=== PATIENT | male | born 1955 | race Caucasian/White ===

== ENCOUNTER 2016-12-21 16:42 | Inpatient (IN) | payer BC ==
[~2016-12-21] VITALS: Ht 182.9 cm; Wt 115.2 kg
--- NOTE | ~2016-12-21 | HEMODYNAMI ---
PATIENT:CANDE CLEMENTS MEDICAL RECORD: [id number] : 51 LOCATION:D.[id number] ADMISSION DATE: 12/21/16 Generatedon:12/23/201613:57 Patient name: CANDE CLEMENTS Patient #: [id number] SSN: : 1955 Date of study: 12/23/2016 Page: Of Hemodynamic Procedure Report Patient Data Patient Demographics Procedure consent was obtained First Name: CANDE Gender: Male Last Name: TYREE : 1955 Patient #: [id number] Age: 61 year(s) Race: Unknown Additional ID: [id number] Contact details [address]: [address] [place] [address] State: [place] City: [facility] [place], [place] Zip code: [address] Admission Admission Data Admission Date: 12/21/2016 Admission Time: 21:21 Room #: 2204 Procedure Procedure Types Cath Procedure Peripheral Cath Diagnostic Procedure Miscellaneous Procedure Description Procedure Date Procedure Date: 12/23/2016 Procedure Start Time: 13:28 Procedure End Time: 13:43 Procedure Staff Name Function Renato Correa RT Scrub Renato Correa RT Monitor Ruben Chambers MD Performing Physician Diamond Cobb RN Nurse Maite Galindo RT Scrub Procedure Data Cath Procedure Fluoroscopy Diagnostic fluoroscopy Total fluoroscopy Time: time: 0.01 min 0.01 min Diagnostic fluoroscopy Total fluoroscopy dose: dose: 0.02 mGy 0.02 mGy Procedure Medications Medication Administration Route Dosage Fentanyl I.V. 50 mcg Versed I.V. 1 mg Fentanyl I.V. 50 mcg Versed I.V. 1 mg Versed I.V. 1 mg Hemodynamics Rest Heart Rate: 70 (bpm) Snapshots Pre Cath Intra NCS Post Cath Vital Signs Time Heart Resp SPO2 NIBP (mmHg) Rhythm Pain Sedation Rate (ipm) (%) Status Level (bpm) 13:21:06 60 31 155/85(130) NSR 0 (11) 10(A) , No pain 13:25:36 60 30 153/78(136) NSR 0 (11) 10(A) , No pain 13:30:03 61 26 158/90(139) NSR 0 (11) 10(A) , No pain 13:34:31 65 19 94 163/84(125) NSR 0 (11) 9(A) , No pain 13:38:51 65 16 96 145/77(116) NSR 0 (11) 9(A) , No pain 13:43:13 65 16 97 139/76(106) NSR 0 (11) 9(A) , No pain 13:47:34 65 13 95 142/84(115) NSR 0 (11) 10(A) , No pain 13:51:33 No Cuff NSR 0 (11) 10(A) , No pain 13:55:33 No Cuff NSR 0 (11) 10(A) , No pain Medications Time Medication Route Dose Verified Delivered Reason Notes Effectivene ss by by 13:27:00 Versed I.V. 1 mg Diamond Diamond for Jordyn Jordyn sedation RN RN 13:27:12 Versed I.V. 1 mg Diamond Diamond for Jordyn Jordyn sedation RN RN 13:27:15 Fentanyl I.V. 50 Diamond Diamond for mcg Jordyn Jordyn sedation RN RN 13:32:08 Fentanyl I.V. 50 Diamond Diamond for mcg Jordyn Jordyn sedation RN RN 13:32:17 Versed I.V. 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 13:19:31 Patient received from Med/Surg to IR Alert and oriented. Tansferred to table in Supine position. 13:19:32 Correct patient and procedure confirmed by team. 13:19:34 Signed procedure consent form obtained from patient. 13:19:35 ECG and BP/O2 sat monitors applied to patient. 13:19:37 Vital chart was started 13:19:38 Baseline sample Acquired. 13:19:44 Rhythm: sinus rhythm 13:19:47 Full Disclosure recording started 13:19:52 H&P Date Dictated: 12/23/2016 Within 30 days and on chart.. 13:19:53 Pre-procedure instructions explained to patient. 13:19:54 Pre-op teaching completed and patient verbalized understanding. 13:19:56 Family in waiting room. 13:19:57 Patient NPO since Midnight. 13:20:42 Is the patient allergic to Iodine/contrast media? No. 13:20:45 Is patient on blood thinner?No 13:20:46 Patient diabetic? Yes. 13:20:49 If diabetic: On Metformin? No 13:20:50 - 13:20:51 ----Pre-sedation anethsthesia assessment.---- 13:20:55 Previous problem with sedation/anesthesia? No ? 13:20:57 Snore? Yes 13:20:59 Sleep apnea? No 13:21:01 Deviated septum? No 13:21:04 Opens mouth fully? Yes 13:21:05 Sticks out tongue? Yes 13:21:07 Airway obstruction? No ? 13:21:10 Dentures? No ? 13:21:18 Patient pain scale 0/10 no. 13:21:26 IV patent on arrival in right forearm with 0.[facility]% [facility] at [facility]. 13:21:29 Sharps counted by scrub and verified by R.N. 13:21:30 Alarms reviewed by R. N. 13:21:38 Left knee area was prepped with chlora-prep and draped in sterile fashion 13:27:00 Versed 1 mg I.V. was administered by Diamond Cobb RN; for sedation; 13:27:08 --------ALL STOP TIME OUT------ 13:27:08 Physician arrived 13:27:09 Final Timeout: patient, procedure, and site verified with staff and physician. All members of the team are in agreement. 13:27:12 Versed 1 mg I.V. was administered by Diamond Cobb RN; for sedation; 13:27:13 Left knee site verified by team. 13:27:15 Fentanyl 50 mcg I.V. was administered by Diamond Cobb RN; for sedation; 13:27:21 Physical assessment completed. ASA score P 2 - A patient with mild systemic disease as per Ruben Chambers MD. 13:27:25 Sedation plan: IV Moderate Sedation Versed, Fentanyl 13:28:44 Procedure started. 13:28:58 Local anesthetic to lt knee with Lidocaine 1% by Ruben Chambers MD.INITIAL ACCESS ONLY 13:32:08 Fentanyl 50 mcg I.V. was administered by Diamond Cobb RN; for sedation; 13:32:17 Versed 1 mg I.V. was administered by Diamond Cobb RN; for sedation; 13:37:05 Procedure ended.(Physican Out) 13:41:38 Fluoroscopy time 00.01 minutes. 13:42:01 Fluoroscopy dose: 0.02 mGy 13:42:01 Flurop Dose total: 0.02 13:42:05 Sharps counted by scrub and verified by R.N. 13:42:11 Post procedure instruction explained to patient.Patient verbalizes understanding. 13:43:10 Procedure and supply charges have been captured, reviewed, submitted an d are correct. 13:43:11 See physician's report for complete and final results. 13:43:20 Report given to Med/Surg. 13:43:34 Patient transfered to Med/Surg with Bed. 13:43:38 Full Disclosure recording stopped 13:43:38 Procedure ended. 13:43:58 End room use (Document Last) Signature Audit [place] Stage Time Signature Unsigned Intra-Procedure 12/23/2016 Maite Mateo 1:57:51 PM RT(R) Signatures Monitor : Renato Signature : Madeline RT Date : Time : [place] [id number]
[~2016-12-21 16:42] MED LIST: BACTRIM DS TABL1 TAB PO; CARDURA4 MG PO; CELEXA20 MG PO; CLEOCIN HCL150 MG PO; DOXYCYCLINE HY100 M2 PO; HYDROCODONE-APA1 TAB PO; MUPIROCIN OIN; NEURONTIN 300300 MG PO; NOVOLIN R100 U/ML SQ; NOVOLOG INJ FLE; SANTYL30 GM TP; TYLENOL W/CODEI1 TAB PO; XARELTO20 MG PO; ZESTRIL20 MG PO; ZOCOR40 MG PO
[2016-12-21 20:54] LABS: BASOPHILS 0.2 % (0.0-2.0); EOSINOPHILS 0 % (0-7); HEMATOCRIT 43.5 % (42.0-54.0); HEMOGLOBIN 15.2 g/dL (13.5-17.5); IMMATURE GRANULOCYTES 0.6 % (0-5); LYMPHOCYTES 9.7 % (15-50); MCH 30.6 pg (26.0-34.0); MCHC 34.9 g/dL (31.0-37.0); MCV 87.5 fL (80.0-100.0); MEAN PLATELET VOLUME 10.9 fL (7.4-10.4); MONOCYTES 13.9 % (2-11); NEUTROPHILS 75.6 % (40-80); RBC 4.97 10x6/uL (4.20-6.10); RDW 13.8 % (11.5-14.5); WBC 18.2 10x3/uL (4.8-10.8)
[2016-12-21 21:09] LABS: ALBUMIN 3.7 g/dL (3.4-5.0); ALKALINE PHOSPHATASE 92 U/L (46-116); ALT (SGPT) 38 U/L (10-68); C-REACTIVE PROTEIN 14.7 mg/dL (0.0-0.9); CALC OSMOLALITY 276 mosm/kg (275-300); CARBON DIOXIDE 27.8 mmol/L (21.0-32.0); CHLORIDE - SERUM 95 mmol/L (98-107); CREATININE - SERUM 0.9 mg/dL (0.6-1.3); GLUCOSE 311 mg/dL (74-106); POTASSIUM - SERUM 4.2 mmol/L (3.5-5.1); PROTEIN - SERUM 6.9 g/dL (6.4-8.2); SODIUM 133 mmol/L (136-145); UREA NITROGEN 11 mg/dL (7-18); eGFR NON AFRICAN AMERICAN > 90 mL/min (90-120)
[2016-12-21 21:25] LABS: PLATELET COUNT 114 10x3/uL (130-400)
[2016-12-21 21:58] LABS: ERYTHROCYTE SEDIMENTATION RATE 16 mm/hr (0-20)
--- NOTE | 2016-12-21 22:00 | NUR ---
RECEIVED PATIENT TO ROOM ALERT AND ORIENTED. C/O PAIN TO LEFT KNEE 03/15. INSTRUCTED USE OF CALL LIGHT. NO NEEDS VOICED AT THIS TIME. BED LOW. CALL LIGHT IN REACH
[2016-12-21] MEDS ORDERED: LEVEMIR100 U/M1 SQ (22:37)
[2016-12-21 23:58] VITALS: BP 161/69; BMI 34.5
[2016-12-22] VITALS: BP 143/66
[2016-12-22 08:19] VITALS: BP 174/56
--- NOTE | 2016-12-22 10:21 | NUR ---
PATIENT HAD 22G IV IN RIGHT HAND. PATIENT HAS VANCOMYCIN ORDERED. DO NOT WANT TO GIVE VANCOMYCIN THROUGH A HAND IV. D/C IV WITH CATH INTACT. STARTED IV TO RIGHT FOREARM, 20G X'S 1 ATTEMPT. LEOPOLDO DUNN FOR CALLED AND SAID " SAID TO HOLD THE VANCOMYCIN UNTIL AFTER THE ASPIRATION."
[2016-12-22 12:16] VITALS: BP 137/71
[2016-12-22 13:11] LABS: COLOR DK YELLOW (YELLOW)
[2016-12-22 13:12] LABS: APPEARANCE HAZY (CLEAR); BILIRUBIN NEGATIVE (NEGATIVE); GLUCOSE 1000 mg/dL (NEGATIVE); KETONE NEGATIVE (NEGATIVE); LEUKOCYTE ESTERASE TRACE (NEGATIVE); NITRITE NEGATIVE (NEGATIVE); PROTEIN NEGATIVE (NEGATIVE)
[2016-12-22 13:13] LABS: BACTERIA FEW /hpf (NONE SEEN); RED CELLS - URINE 0-5 /hpf (0-5); WHITE CELLS - URINE 0-5 /hpf (0-5)
[2016-12-22 13:14] LABS: MUCUS <1+ /lpf (NONE SEEN); YEAST >1+ WITH HYPHAE /hpf (NONE SEEN)
[2016-12-22 13:16] VITALS: Ht 182.9 cm; Wt 115.2 kg
--- NOTE | 2016-12-22 14:06 | NUR ---
Patient Name: CANDE CLEMENTS Admission Status: ER Accout number: [id number] Admission Date: 12-21-2016 : 1955 Admission Diagnosis: Attending: SUSANNA Current LOS: 1 Anticipated DC Date: 12-25-2016 Planned Disposition: Home Primary Insurance: [employer] [facility] EXCHANGE Discharge Planning Comments: CM MET WITH PATIENT REGARDING D/C NEEDS AND PLANS. PATIENT STATED HE LIVES WITH HIS (BEVERLY) AND SHE WILL DRIVE HIM HOME WHEN DISCHARGED. PATIENT STATED THERE ARE 2 STEPS W/O RAILS TO ENTER HOME AND NO STAIRS INSIDE. PATIENT STATED HE IS INDEPENDENT WITH HIS CARE AND HAS A WALKER, WHEELCHAIR, SHOWER CHAIR, BS COMMODE, CANE, AND GLUCOMETER (CKS. 2X DAY) AT HOME. PATIENTS PCP IS DR. ALBERTS AND PHARMACY IS [facility]. PATIENT HAS NOT HAD HOME HEALTH AND DOES NOT WANT IT WHEN DISCHARGED. CM WILL CONTINUE TO FOLLOW PATIENT WITH D/C NEEDS AND PLANS. PCP DR. ENGLISH SALDAÑA [facility] (PHARMACY) [phone] BEVERLY () [phone] Psychological Examiner: Melisa Dang Is the patient Alert and Oriented? Yes 0 * How many steps to enter\exit or inside your home? 2 W/O RAIL 0 * PCP DR. ALBERTS 0 * Pharmacy [facility] 0 * Preadmission Environment Home with Family 0 * ADLs Independent 0 * Equipment Bedside Commode Cane Glucometer Walker Wheelchair 0 * List name and contact numbers for known caregivers / representatives who currently or will assist patient after discharge: BEVERLY (SPOUSE) [phone] 0 * Community resources currently utilized None 0 * Additional services required to return to the preadmission environment? Yes 0 * Can the patient safely return to the preadmission environment? Yes 0 * Has this patient been hospitalized within the prior 30 days at any hospital? No 0 Grand Total: 0
[2016-12-22 16:44] VITALS: BP 131/64
[2016-12-22] MEDS ORDERED: OMEPRAZOLE20 M1 PO (19:51)
[2016-12-22] MEDS ORDERED: NEURONTIN 300300 MG PO (19:52)
[2016-12-22] MEDS ORDERED: ASPIRIN325 MG PO (19:52)
[2016-12-22 20:00] VITALS: BP 150/71
--- NOTE | 2016-12-22 21:00 | NUR ---
PATIENT RESTING IN BED. PRESENT. NO SIGNS OF DISTRESS NOTED. EDUCATED ON NPO AFTER MIDNIGHT AND PROCEDURE CONSENTS SIGNED. SCHEDULED MEDS GIVEN. SHIFT ASSESSMENT COMPLETED. NO NEEDS VOICED AT THIS TIME. BED LOW. CALL LIGHT IN REACH
[2016-12-23] VITALS (8 sets, daily range): BP systolic 96–154; BP diastolic 45–72
--- NOTE | 2016-12-23 02:00 | NUR ---
PT IN BED WITH NO DISTRESS. RESPIRATIONS EVEN AND UNLABORED. SIDE RAILS X 2. BED LOW. CALL LIGHT IN REACH.
[2016-12-23 05:38] LABS: BASOPHILS 0.1 % (0.0-2.0); EOSINOPHILS 0.8 % (0-7); HEMATOCRIT 39.9 % (42.0-54.0); HEMOGLOBIN 13.4 g/dL (13.5-17.5); IMMATURE GRANULOCYTES 0.4 % (0-5); LYMPHOCYTES 16.6 % (15-50); MCH 30.1 pg (26.0-34.0); MCHC 33.6 g/dL (31.0-37.0); MEAN PLATELET VOLUME 11.7 fL (7.4-10.4); MONOCYTES 15.6 % (2-11); NEUTROPHILS 66.5 % (40-80); PLATELET COUNT 125 10x3/uL (130-400); RBC 4.45 10x6/uL (4.20-6.10); RDW 13.9 % (11.5-14.5); WBC 13.8 10x3/uL (4.8-10.8)
[2016-12-23 05:48] LABS: MCV 89.7 fL (80.0-100.0)
[2016-12-23 05:50] LABS: APTT 31.7 SECONDS (22.8-39.4); INR 1.32 (0.85-1.17); PROTIME 16.3 SECONDS (11.6-15.0)
[2016-12-23 06:02] LABS: CARBON DIOXIDE 30.1 mmol/L (21.0-32.0); CREATININE - SERUM 0.7 mg/dL (0.6-1.3); GLUCOSE 177 mg/dL (74-106); UREA NITROGEN 12 mg/dL (7-18); eGFR NON AFRICAN AMERICAN > 90 mL/min (90-120)
[2016-12-23 06:24] LABS: CALC OSMOLALITY 269 mosm/kg (275-300); CHLORIDE - SERUM 96 mmol/L (98-107); POTASSIUM - SERUM 3.8 mmol/L (3.5-5.1); SODIUM 133 mmol/L (136-145)
--- NOTE | 2016-12-23 07:47 | HP ---
PATIENT: CANDE CLEMENTS MEDICAL RECORD: [id number] ACCOUNT: [id number] LOCATION:D.[id number] : [birth year] ADMISSION DATE: 12/21/16 HISTORY AND PHYSICAL EXAMINATION REASON FOR ADMISSION: Left knee pain and fever. HISTORY OF PRESENT ILLNESS: The patient is a 61-year-old male with poorly-controlled metabolic syndrome. He has had 3 prior total knee replacements on the left. He said he has had increasing pain in the last 3-4 days and the knee felt warm to him. He had some subjective fever, did not check his blood sugars, also elevated somewhat. For this reason, he came to Emergency Room last evening. Dr. Fischer examined the patient and felt he had symptoms compatible with a septic joint. He is now admitted. He does not have any recent abrasions or cuts on his foot or lower leg. On admission, his white count was 18,000 with left shift, and random glucose was 311. PAST MEDICAL HISTORY: Last hospitalized 01/31/2016 for Staph and Strep cellulitis of his left hip and right inner thigh, requiring I&D. Diabetes mellitus, poorly controlled; exogenous obesity, history of paroxysmal atrial fibrillation, CAD with multiple interventions with PTCA, diabetic retinopathy, sick sinus syndrome with pacemaker placement, cardiomyopathy with last cardiac cath on 03/31/2014 at [facility] showing normal coronaries and EF of 35% and LVH. History of hypogonadism, lumbago, sciatica. History of adult sleep apnea. PAST SURGICAL HISTORY: He had a pacemaker placement, 11/01/2000. Appendectomy. He has had a left total knee replacement times 3, pain pump device placement. Pacemaker change out, 10/05/2007, with a [facility] by Dr. Perea. Ablation of atrial fib focus, 11/01/2000. 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 He has had I&D of right and left thigh abscess, 2016. FAMILY HISTORY: Positive for hypertension in both parents. DRUG ALLERGIES: None mentioned. SOCIAL HISTORY: Nonsmoker, nondrinker. He has been . He has a significant other currently. CURRENT MEDICATIONS: Levemir 47 units subQ b.i.d., Xarelto 20 mg p.o. daily, Cardura 4 mg p.o. daily, lisinopril 20 mg p.o. daily, Zocor 40 mg p.o. at bedtime, Celexa 20 mg p.o. q.a.m., Neurontin 300 mg p.o. at bedtime. REVIEW OF SYSTEMS: GENERAL: He has had subjective fever and fair appetite. HEENT: No recent visual change of new onset, sinus congestion, sore throat or hearing difficulty. RESPIRATORY: No SOB or cough. CARDIAC: No exertional rest chest pain, claudication or edema. GASTROINTESTINAL: No nausea, vomiting, change in stools or blood per rectum. GENITOURINARY: Has nocturia once nightly. No dysuria. MUSCULOSKELETAL: Has chronic lumbago worse in the right hip versus left. He is having increasing pain in his left knee, especially with ambulation in the last several days. He has had warmth in the left knee as well as some heat and HISTORY AND PHYSICAL [id number] CANDE CLEMENTS erythema. INTEGUMENT: Erythema of the left knee, otherwise unremarkable. PSYCHIATRIC: Denies depress mood. PHYSICAL EXAMINATION: GENERAL: Alert 61-year-old male at this time in no acute distress. VITAL SIGNS: Temperature is 98.2 degrees Fahrenheit with a high of 99.1, heart rate 65 and regular, respirations are 28, blood pressure 143/66, with a sat of 94% on room air. HEENT: Normocephalic. Eyes are clear. Oropharynx unremarkable. NECK: No bruits or masses. CHEST: Clear. HEART: Regular rate without ectopy or murmur. ABDOMEN: Obese, soft, nontender. GENITOURINARY: Deferred. EXTREMITIES: He has warmth and swelling on the left patella with a healed surgical scar noted over the left anterior knee and tibia. It is warm to the touch, difficulty flexing causes pain. He is missing the PIPs of his left first, second and third fingers of his left hand. NEUROLOGIC: He is oriented to person, place and time. Cranial nerves intact. Gait was not tested. Pain in his left knee. Decreased sensation to touch in the bottoms of both feet. LABORATORY WORK: Shows a white count of 18.2 thousand with 75% lymphocytes, platelet count was low at 114. H&H is 15.2 and 43.5 respectively. Sodium is 133, potassium is 4.5, glucose is 311, BUN and creatinine 11 and 0.9 respectively. Lactic acid was 3.2 on admission, now 1.2. Total bilirubin is 1.6. C-reactive protein is high at 14.7. X-ray of the knee shows postoperative changes as described with knee arthroplasty, vascular calcifications identified, otherwise unremarkable. 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 PLAN: The patient has been cultured and placed on IV vancomycin. Orthopedic consult has been obtained with Dr. Quigley. Sliding scale insulin. Further workup pending clinical course. TRANSINT:[id number] Voice Confirmation ID: [id number] DOCUMENT ID: [id number] SINCERE ALBERTS MD at 0747 CC: [id number] DICTATION DATE: 12/22/16 0748 CONCRETE TRUCK DRIVER: 12/22/16 0905 ADM IN [facility] [address] [id number]
--- NOTE | 2016-12-23 09:00 | NUR ---
PATIENT IS AWAKE AND ALERT, HE IS ABLE TO MAKE NEEDS KNOWN. HE HAS NOT C/O PAIN. HE IS READY TO HAVE HIS PROCEDURE AND GET IT OVER WITH.
--- NOTE | 2016-12-23 12:00 | NUR ---
WENT OVER CONSENTS AND PREPROCEDURE FORM WITH PATIENT. PATIENT VERBALIZES UNDERSTANDING.
--- NOTE | 2016-12-23 13:00 | NUR ---
PATIENT WENT TO PROCEDURE VIA STRETCHER.
--- NOTE | 2016-12-23 14:00 | NUR ---
PATIENT BACK FROM PROCEDURE, IV FLUIDS AND ANTIBIOTICS RESTARTED. PATIENT IS RESTING, VS BEING CHECKED. NO, C/O.
--- NOTE | 2016-12-23 16:30 | NUR ---
FSBS 241, PATIENT RECEIVED 8 UNITS HUMALOG.
--- NOTE | 2016-12-23 18:00 | NUR ---
PATIENT SITTING IN HIS ROOM WITH HIS SPOUSE DENIES NEEDS.
--- NOTE | 2016-12-23 19:00 | NUR ---
PATIENT IN BED WATCHING TV. HOB 30 DEGREES. AAOX4. RR EVEN AND UNLABORED. 0 S/S OF DISTRESS. STATES PAIN IS A 4/10 BUT DOES NOT WANT PAIN MEDICATION. IV TO LEFT FA S/L WITH NO REDNESS OR SWELLING. BANDAID TO LEFT KNEE. SRX2. BED LOW. CALL LIGHT WITHIN REACH.
--- NOTE | 2016-12-23 21:00 | NUR ---
10 UNITS OF HUMALOG GIVEN FOR A BS OF 252 AND LEVEMIR GIVEN PER ORDER. DENIES NEEDS AT THIS TIME.
--- NOTE | 2016-12-23 23:32 | NUR ---
DILAUDID GIVEN FOR A PAIN OF A 9/10. WILL REASSESS.
[2016-12-24] VITALS: BP 138/57
--- NOTE | 2016-12-24 02:00 | NUR ---
PATIENT IN BED WITH EYES CLOSED. STATES PAIN IS DOWN TO A 3/10.
[2016-12-24 03:00] VITALS: BP 137/74
[2016-12-24 07:46] VITALS: BP 143/68
--- NOTE | 2016-12-24 08:25 | NUR ---
SCHEDULED MEDICATIONS ADMINSTERED AT THIS TIME WELL PRN DILAUDID PER ORDER FOR PAIN. ASSESSMENT PERFORMED PER FLOWSHEET. PT AMBULATES INDEPENDENTLY WITH WALKER. DENIES FURTHER NEEDS AT PRESENT TIME. CALL LIGHT IN REACH, WILL CONTINUE WITH PLAN OF CARE.
--- NOTE | 2016-12-24 11:47 | NUR ---
HUMALOG ADMINISTERED PER SLIDING SCALE AT THIS TIME. PT DENIES NEED FOR PAIN MEDICATION AT THIS TIME. CALL LIGHT IN REACH, WILL CONTINUE WITH PLAN OF CARE.
[2016-12-24 12:12] VITALS: BP 138/74
[2016-12-24 16:29] VITALS: BP 149/72
[2016-12-24 20:00] VITALS: BP 162/73
--- NOTE | 2016-12-24 20:15 | NUR ---
PATIENT RESTING IN BED. NO SIGNS OF DISTRESS NOTED. ALERT AND ORIENTED. AT BEDSIDE. SHIFT ASSESSMENT COMPLETED. SET UP FOR SHOWER AND LINENS CHANGED. DENIES ANY OTHER NEEDS AT THIS TIME. BED LOW. CALL LIGHT IN REACH
--- NOTE | 2016-12-24 21:58 | NUR ---
RESTING WITH EYES CLOSED, SNORING RESP, BLE ELEVATED, FALL PRECATIONS IN PLACE, CL IN REACH
[2016-12-25] VITALS: BP 132/67
[2016-12-25 04:00] VITALS: BP 154/74
[2016-12-25 07:52] VITALS: BP 138/66
--- NOTE | 2016-12-25 07:55 | NUR ---
PATIENT IS AWAKE, ALERT AND ORIENTED X'S 4. PATIENT DENIES NEEDS. BED IN LOWEST POSITION, CALL LIGHT IN REACH. BED RAILS UP X'S 2.
--- NOTE | 2016-12-25 08:20 | NUR ---
PATIENT EATING BREAKFAST. IV TO LEFT FOREARM BAD, WILL D/C AND RESTART IV WHEN PATIENT FINISHES BREAKFAST.
--- NOTE | 2016-12-25 09:37 | NUR ---
IV STARTED TO RIGHT FOREARM X'S 1 ATTEMPT.
[2016-12-25 12:08] VITALS: BP 152/75
--- NOTE | 2016-12-25 12:20 | NUR ---
Nutrition Follow Up: Chart reviewed. Pt is eating 100% meal avg on a diabetic diet. +BM 12/24/16. Wt stable. Labs reviewed - Glucose continues elevated. Meds noted including Levemir, Humalog. Rec continue current diet. RD will continue to monitor pt progress.
[2016-12-25 14:54] VITALS: BP 161/68
--- NOTE | 2016-12-25 19:58 | NUR ---
PATIENT RESTING IN BED AND DENIES NEEDS AT THIS TIME. BED IN LOWEST POSITION AND CALL LIGHT WTIHIN REACH. ENCOURAGED THE PATIENT TO CALL IF HE HAS FURTHER NEEDS.
[2016-12-25 20:00] VITALS: BP 127/52
[2016-12-26] VITALS: BP 143/61
[2016-12-26 04:00] VITALS: BP 126/69
--- NOTE | 2016-12-26 07:00 | NUR ---
PT REC'D FROM RIYA SCHUSTER. RESTING IN BED WITH EYES CLOSED. NO SIGNS OF DISTRESS. EASILY AROUSED. AAOX4. REGULAR HEART RATE AND RHYTHM. LUNG SOUNDS CLEAR AND EQUAL BILAT. BOWEL SOUNDS ACTIVE X4 QUADRANTS. L KNEE WARM AND SWOLLEN. +1 PITTING EDEMA FROM ANKLE TO KNEE. RATING CURRENT PAIN 6/10. BED LOW, CALL LIGHT IN REACH, DENIES NEEDS. CPOC.
[2016-12-26 08:17] VITALS: BP 128/66
--- NOTE | 2016-12-26 10:15 | NUR ---
MORNING MEDS PASSED AT THIS TIME. PRN DILAUDID ADMINISTERED PER PT C/O 04/15 L KNEE PAIN. WILL REASSESS. PIV TO R WRIST FREE OF REDDNESS AND SWELLING. LONG ACTING INSULIN ADMINISTERED TO LUQ. BED LOW, CALL LIGHT IN REACH, DENIES NEEDS. CPOC.
[2016-12-26 11:45] VITALS: BP 148/71
--- NOTE | 2016-12-26 11:52 | NUR ---
CURRENT FSBS 220. 12 UNITS OF INSULIN ADMINISTERED PER SS. GIVEN IN L ARM. BED LOW, CALL LIGHT IN REACH, DENIES NEEDS. CPOC.
[2016-12-26 15:35] VITALS: BP 155/75
--- NOTE | 2016-12-26 18:02 | NUR ---
PATIENT RESTING QUIETLY IN THE BED. IV SITE PATENT WITHOUT ANY S/S OF INFECTION IN PATIENT'S RIGHT HAND. PATIENT DENIES NEEDS AT PRESENT TIME. SCD'S IN PLACE TO BILATERAL LOWER EXTREMITIES. CALL LIGHT IN PATIENT'S REACH. WILL MONITOR.
[2016-12-26 20:00] VITALS: BP 157/56
--- NOTE | 2016-12-26 20:00 | NUR ---
PATIENT RESTING IN BED WITH FAMILY AT BEDSIDE. PATIENT SHOWS NO VISIBLE SIGNS OF DISTRESS. BED IN LOWEST POSITION AND CALL LIGHT WITHIN REACH. ENCOURAGED PATIENT TO CALL IF HE HAS NEEDS.
[2016-12-27] VITALS: BP 148/71
[2016-12-27 04:00] VITALS: BP 149/59
[2016-12-27 08:55] VITALS: BP 159/71
[2016-12-27 12:48] VITALS: BP 144/69
[2016-12-27 17:35] VITALS: BP 142/70
--- NOTE | 2016-12-27 21:33 | NUR ---
PATIENT RESTING IN BED WITH C/O 10/10 PAIN. ADMIN DILAUDID PER ORDERS. BS 200, ADMINISTERED INSULIN PER ORDERS. PATIENT DENIES OTHER NEEDS AT THIS TIME. BED IN LOWEST POSITION AND CALL LIGHT WITHIN REACH. ENCOURAGED PATIENT TO CALL IF HE HAS FURTHER NEEDS.
[2016-12-28] VITALS: BP 140/70
[2016-12-28 04:00] VITALS: BP 127/64
[2016-12-28 07:49] VITALS: BP 143/70
--- NOTE | 2016-12-28 08:40 | NUR ---
PT SEEN AND ASSESSED. NO COMP;AINTS AT PRESENT. LEFT KNEE SWOLLEN, WARM BUT NOT PINK OR RED. STATES IT FEELS BETTER. AWAITING CONSULT TO INF CONTROL DOC IN [place]. SPOUSE PRESENT IN ROOM. CALL LIGHT IN REACH.
[2016-12-28 11:25] VITALS: BP 135/70
[2016-12-28 16:01] VITALS: BP 141/68
[2016-12-28 20:00] VITALS: BP 116/55
--- NOTE | 2016-12-28 20:17 | NUR ---
PATIENT RESTING IN BED WITH WITH AT BEDSIDE. PATIENT STATED THAT HE IS STILL HOPING THE DOCTOR WILL BE IN TO SEE HIM TONIGHT. BED IN LOWEST POSITION AND CALL LIGHT WITHIN REACH. ENCOURAGED THAT PATIENT TO CALL IF HE HAS FURTHER NEEDS.
--- NOTE | 2016-12-28 21:45 | NUR ---
PATIENT RESTING IN BED WITH 9/10 PAIN. ADMINISTERED MEDS PER ORDERS. BED IN LOWEST POSITION AND CALL LIGHT WITHIN REACH. ENCOURAGED PATIENT TO CALL IF HE HAS FURTHER NEEDS.
[2016-12-29] VITALS: BP 144/68
[2016-12-29 04:00] VITALS: BP 157/66
--- NOTE | 2016-12-29 07:38 | NUR ---
AWAKE AND ALERT AT THIS TIME. RESPIRATIONS EVEN AND NON LABORED. IV TO LEFT FOREARM PATENT WITH NO S/S OF DISTRESS PRESENT. DENIES NEEDS AT THIS TIME. CALL LIGHT IN REACH. WILL CONTINUE WITH PLAN OF CARE.
[2016-12-29 08:12] LABS: BASOPHILS 0.3 % (0-2); EOSINOPHILS 0.7 % (0-7); HEMATOCRIT 38.8 % (42.0-54.0); IMMATURE GRANULOCYTES 0.4 % (0-5); LYMPHOCYTES 15.7 % (15-50); MCH 29.7 pg (26.0-34.0); MCHC 33.5 g/dL (31.0-37.0); MCV 88.8 fL (80.0-100.0); MEAN PLATELET VOLUME 9.6 fL (7.4-10.4); MONOCYTES 14.1 % (2-11); NEUTROPHILS 68.8 % (40-80); PLATELET COUNT 242 10x3/uL (130-400); RBC 4.37 10x6/uL (4.20-6.10); RDW 13.6 % (11.5-14.5); WBC 10.6 10x3/uL (4.8-10.8)
--- NOTE | 2016-12-29 08:15 | NUR ---
PT RESTING IN BED WITH EYES OPEN CALL LIGHT IN REACH WILL MONITER
[2016-12-29 08:36] LABS: CALC OSMOLALITY 272 mosm/kg (275-300); CALCIUM 9.4 mg/dL (8.5-10.1); CARBON DIOXIDE 28.3 mmol/L (21.0-32.0); CHLORIDE - SERUM 99 mmol/L (98-107); CREATININE - SERUM 0.7 mg/dL (0.6-1.3); GLUCOSE 93 mg/dL (74-106); POTASSIUM - SERUM 3.9 mmol/L (3.5-5.1); SODIUM 137 mmol/L (136-145); UREA NITROGEN 10 mg/dL (7-18); VANCOMYCIN - TROUGH 16.3 ug/mL (10.0-20.0); eGFR NON AFRICAN AMERICAN > 90 mL/min (90-120)
[2016-12-29 09:03] VITALS: BP 138/69
--- NOTE | 2016-12-29 12:15 | NUR ---
PT RESTING IN BED EATING LUNCH TOLERATING WELL WILL MONITER
[2016-12-29 12:16] VITALS: BP 144/77
[2016-12-29 15:53] VITALS: BP 164/64
[2016-12-29] MEDS ORDERED: VIBRAMYCIN 100100 MG PO (17:35)
[2016-12-29] MEDS ORDERED: HUMALOG 30100 UNITS/ SC (17:36)
[2016-12-29] MEDS ORDERED: LEVEMIR100 U/M1 SC (17:36)
[2016-12-29] MEDS ORDERED: HYDROCODONE-APA1 TAB PO (17:39)
--- NOTE | 2016-12-29 17:44 | NUR ---
PT SITTING ON BED EATING SUPPER TOLERATING WELL WILL MONITER
--- NOTE | 2016-12-29 18:40 | NUR ---
PT DISCHARGED TO HOME VIA WHEELCHAIR PT DISCHARGE SUMMARY AND MEDS REVIEWED NO QUESTIONS TOLERATED WELL
--- NOTE | 2016-12-30 17:23 | DS ---
PATIENT:CANDE CLEMENTS :51 MEDICAL RECORD: [id number] DISCHARGE SUMMARY ADMISSION DATE: 12/21/16 DISCHARGE DATE: 12/29/16 DISCHARGE DIAGNOSES: Left knee infection with Staphylococcus lugdunensis, diabetes mellitus, uncontrolled, and osteoarthritis. CONSULTANTS: Dr. Crow Quigley, orthopedics. HOSPITAL COURSE: A 61-year-old male with metabolic syndrome presented with increasing pain, warmth in his left knee. White blood count was elevated at 18.2 thousand with left shift. BUN and creatinine were 10 and 0.7 and glucose was 272. He was placed on sliding scale insulin, Lantus was increased to 63 units b.i.d. a.c. He had blood and urine cultures obtained. He underwent interventional radiology aspiration of his knee after his anticoagulant was withheld. He grew the above staph organism. Cultures showed sensitivity to tetracycline, levofloxacin, ciprofloxacin, vancomycin which the patient was on while hospitalized. He was switched to oral doxycycline. His pain has been improving, still warm to touch. His white count is improved to 10,000 from 18,000. Dr. uQigley consulted, but per telephone with Dr. Sarha in [place], [place] and he has accepted the patient and an appointment will be set up at Dr. Quigley's office tomorrow. The patient will be discharged home tonight with improved condition. DISCHARGE MEDICATIONS: Hydrocodone 10/325 one q.4-6 hours for pain, #30, no refills; doxycycline 100 mg p.o. b.i.d. p.c., Levemir 63 units subQ b.i.d. a.c., insulin lispro per sliding scale insulin, Zocor 40 mg p.o. at h.s., Xarelto 20 mg p.o. daily, lisinopril 20 mg p.o. daily, Cardura 4 mg p.o. at h.s., Celexa 20 mg p.o. daily, omeprazole 20 mg p.o. q.a.m., Neurontin 300 mg p.o. t.i.d., aspirin 325 mg p.o. daily. DIET: 2500-calorie ADA, no added salt. ACTIVITY: Limited. FOLLOWUP: Return to clinic, Dr. Quigley in 1 week. TRANSINT:[id number] Voice Confirmation ID: [id number] DOCUMENT ID: [id number] SINCERE ALBERTS MD at 1723 CC: [id number] DICTATION DATE: 12/29/161742 BUSINESS ADMINISTRATION PROFESSOR: 12/30/16 1352 DIS IN 12/29/16 [facility] [address] [id number]
== END 2016-12-29 18:41 | disposition home or self-care (01) | DRG 561 ==
LOC: D.ER 16:42 → D.MS 21:21
PROVIDERS: Emergency Medicine; Specialist; ADMIT Family Medicine
PROC: 0S9D3ZZ Drainage of Left Knee Joint, Percutaneous Approach (ICD-10-PCS; principal; 2016-12-23 13:15)
DX: T84.54XA Infection and inflammatory reaction due to internal left knee prosthesis, initial encounter (principal); E11.40 Type 2 diabetes mellitus with diabetic neuropathy, unspecified; I10 Essential (primary) hypertension; I48.91 Unspecified atrial fibrillation; Z95.0 Presence of cardiac pacemaker; B95.7 Other staphylococcus as the cause of diseases classified elsewhere; E11.9 Type 2 diabetes mellitus without complications; Z79.4 Long term (current) use of insulin; R19.7 Diarrhea, unspecified

== ENCOUNTER → 2017-02-10 19:48 | Outpatient (CLI) | payer BC ==
[2016-12-22 13:16] VITALS: BMI 34.4
[~2017-02-10 19:48] MED LIST changes: +ASPIRIN325 MG PO; +HUMALOG 30100 UNITS/ SC; +LEVEMIR100 U/M1 SC; +LEVEMIR100 U/M1 SQ; +OMEPRAZOLE20 M1 PO; +VIBRAMYCIN 100100 MG PO
[2017-02-10 20:06] LABS: BASOPHILS 0.4 % (0-2); EOSINOPHILS 2.6 % (0-7); HEMATOCRIT 38.2 % (42.0-54.0); HEMOGLOBIN 12.5 g/dL (13.5-17.5); IMMATURE GRANULOCYTES 0.3 % (0-5); LYMPHOCYTES 19.8 % (15-50); MCH 28.9 pg (26.0-34.0); MCHC 32.7 g/dL (31.0-37.0); MCV 88.2 fL (80.0-100.0); MONOCYTES 11.6 % (2-11); NEUTROPHILS 65.3 % (40-80); RBC 4.33 10x6/uL (4.20-6.10); RDW 14.6 % (11.5-14.5); WBC 9.3 10x3/uL (4.8-10.8)
[2017-02-10 20:09] LABS: PLATELET COUNT 166 10x3/uL (130-400)
[2017-02-10 20:18] LABS: ALBUMIN 3.3 g/dL (3.4-5.0); ALKALINE PHOSPHATASE 129 U/L (46-116); ALT (SGPT) 42 U/L (10-68); BILIRUBIN - TOTAL 0.53 mg/dL (0.2-1.3); C-REACTIVE PROTEIN 1.9 mg/dL (0.0-0.9); CALC OSMOLALITY 280 mosm/kg (275-300); CALCIUM 9.7 mg/dL (8.5-10.1); CARBON DIOXIDE 27.9 mmol/L (21.0-32.0); CHLORIDE - SERUM 102 mmol/L (98-107); CREATINE KINASE 95 UL (21-232); CREATININE - SERUM 0.8 mg/dL (0.6-1.3); GLUCOSE 109 mg/dL (74-106); PROTEIN - SERUM 7.3 g/dL (6.4-8.2); SODIUM 140 mmol/L (136-145); UREA NITROGEN 16 mg/dL (7-18); eGFR NON AFRICAN AMERICAN > 90 mL/min (90-120)
[2017-02-10 21:05] LABS: ERYTHROCYTE SEDIMENTATION RATE 47 mm/hr (0-20)
== END | disposition home or self-care (01) ==
LOC: D.LABREF 19:48
PROVIDERS: Family Medicine
DX: Z96.652 Presence of left artificial knee joint (principal)

== ENCOUNTER → 2017-02-15 15:42 | Outpatient (CLI) | payer MEDICAID ==
[2016-12-22 13:16] VITALS: BMI 34.4
[2017-02-15 16:56] LABS: BASOPHILS 0.3 % (0-2); EOSINOPHILS 1.1 % (0-7); HEMATOCRIT 36.9 % (42.0-54.0); HEMOGLOBIN 12.1 g/dL (13.5-17.5); IMMATURE GRANULOCYTES 0.3 % (0-5); LYMPHOCYTES 15.6 % (15-50); MCHC 32.8 g/dL (31.0-37.0); MCV 88.5 fL (80.0-100.0); MEAN PLATELET VOLUME 11.3 fL (7.4-10.4); MONOCYTES 13.1 % (2-11); NEUTROPHILS 69.6 % (40-80); PLATELET COUNT 151 10x3/uL (130-400); RBC 4.17 10x6/uL (4.20-6.10); WBC 10.5 10x3/uL (4.8-10.8)
[2017-02-15 17:47] LABS: ALBUMIN 3.2 g/dL (3.4-5.0); ALKALINE PHOSPHATASE 126 U/L (46-116); ALT (SGPT) 35 U/L (10-68); C-REACTIVE PROTEIN 5.3 mg/dL (0.0-0.9); CALC OSMOLALITY 271 mosm/kg (275-300); CARBON DIOXIDE 27.2 mmol/L (21.0-32.0); CHLORIDE - SERUM 100 mmol/L (98-107); CREATINE KINASE 105 UL (21-232); CREATININE - SERUM 0.7 mg/dL (0.6-1.3); GLUCOSE 139 mg/dL (74-106); POTASSIUM - SERUM 3.7 mmol/L (3.5-5.1); PROTEIN - SERUM 7.2 g/dL (6.4-8.2); SODIUM 135 mmol/L (136-145); UREA NITROGEN 13 mg/dL (7-18); eGFR NON AFRICAN AMERICAN > 90 mL/min (90-120)
[2017-02-15 18:00] LABS: ERYTHROCYTE SEDIMENTATION RATE 44 mm/hr (0-20)
== END | disposition home or self-care (01) ==
LOC: D.LABREF 15:42
PROVIDERS: Family Medicine
DX: Z96.652 Presence of left artificial knee joint (principal)

== ENCOUNTER → 2017-03-17 19:31 | Outpatient (CLI) | payer MEDICAID ==
[2016-12-22 13:16] VITALS: BMI 34.4
[2017-03-17 20:40] LABS: CREATININE - SERUM 0.9 mg/dL (0.6-1.3); VANCOMYCIN - TROUGH 9.5 ug/mL (10.0-20.0)
== END | disposition home or self-care (01) ==
LOC: D.LABREF 19:31
PROVIDERS: Family Medicine
DX: Z51.81 Encounter for therapeutic drug level monitoring (principal); Z79.2 Long term (current) use of antibiotics

== ENCOUNTER → 2017-03-22 15:25 | Outpatient (CLI) | payer MEDICAID ==
[2016-12-22 13:16] VITALS: BMI 34.4
[2017-03-22 16:04] LABS: HEMATOCRIT 32.1 % (42.0-54.0); HEMOGLOBIN 10.4 g/dL (13.5-17.5); LYMPHOCYTES 18.1 % (15-50); MCHC 32.4 g/dL (31.0-37.0); MCV 86.5 fL (80.0-100.0); MEAN PLATELET VOLUME 9.3 fL (7.4-10.4); NEUTROPHILS 68.5 % (40-80); RBC 3.71 10x6/uL (4.20-6.10); RDW 16.4 % (11.5-14.5); WBC 9.7 10x3/uL (4.8-10.8)
[2017-03-22 16:05] LABS: PLATELET COUNT 267 10x3/uL (130-400)
[2017-03-22 16:24] LABS: C-REACTIVE PROTEIN 2.8 mg/dL (0.0-0.9); CREATININE - SERUM 0.7 mg/dL (0.6-1.3); VANCOMYCIN - TROUGH 21.1 ug/mL (10.0-20.0)
[2017-03-22 17:11] LABS: ERYTHROCYTE SEDIMENTATION RATE 40 mm/hr (0-20)
== END | disposition home or self-care (01) ==
LOC: D.LABREF 15:25
PROVIDERS: Family Medicine
DX: T84.54XA Infection and inflammatory reaction due to internal left knee prosthesis, initial encounter (principal)

== ENCOUNTER → 2017-03-29 15:56 | Outpatient (CLI) | payer MEDICAID ==
[2016-12-22 13:16] VITALS: BMI 34.4
[2017-03-29 16:10] LABS: BASOPHILS 0.5 % (0-2); EOSINOPHILS 5.2 % (0-7); HEMATOCRIT 34.2 % (42.0-54.0); HEMOGLOBIN 10.6 g/dL (13.5-17.5); IMMATURE GRANULOCYTES 0.3 % (0-5); LYMPHOCYTES 15.9 % (15-50); MCV 90.5 fL (80.0-100.0); MONOCYTES 11.1 % (2-11); PLATELET COUNT 240 10x3/uL (130-400); RBC 3.78 10x6/uL (4.20-6.10); RDW 17.3 % (11.5-14.5); WBC 7.5 10x3/uL (4.8-10.8)
[2017-03-29 16:37] LABS: C-REACTIVE PROTEIN 0.7 mg/dL (0.0-0.9); CREATININE - SERUM 0.6 mg/dL (0.6-1.3); VANCOMYCIN - TROUGH 15.3 ug/mL (10.0-20.0)
[2017-03-29 18:46] LABS: ERYTHROCYTE SEDIMENTATION RATE 26 mm/hr (0-20)
== END | disposition home or self-care (01) ==
LOC: D.LABREF 15:56
PROVIDERS: Family Medicine
DX: T84.54XA Infection and inflammatory reaction due to internal left knee prosthesis, initial encounter (principal)

== ENCOUNTER 2017-04-01 07:18 | Emergency (ER) | payer BC ==
[2016-12-22 13:16] VITALS: BMI 34.4
== END 2017-04-01 10:03 | disposition home or self-care (01) ==
LOC: D.ER 07:18
DX: S89.92XA Unspecified injury of left lower leg, initial encounter (principal); W19.XXXA Unspecified fall, initial encounter; Y93.89 Activity, other specified; Y92.89 Other specified places as the place of occurrence of the external cause; E11.9 Type 2 diabetes mellitus without complications; I10 Essential (primary) hypertension; Z95.0 Presence of cardiac pacemaker

== ENCOUNTER → 2017-04-05 09:49 | Outpatient (CLI) | payer MEDICAID ==
[2016-12-22 13:16] VITALS: BMI 34.4
[2017-04-05 12:51] LABS: BASOPHILS 0.6 % (0-2); EOSINOPHILS 7.8 % (0-7); HEMATOCRIT 34.4 % (42.0-54.0); HEMOGLOBIN 10.8 g/dL (13.5-17.5); IMMATURE GRANULOCYTES 0.3 % (0-5); LYMPHOCYTES 15.7 % (15-50); MCH 28.3 pg (26.0-34.0); MCHC 31.4 g/dL (31.0-37.0); MCV 90.3 fL (80.0-100.0); MEAN PLATELET VOLUME 10.6 fL (7.4-10.4); MONOCYTES 11.8 % (2-11); NEUTROPHILS 63.8 % (40-80); RBC 3.81 10x6/uL (4.20-6.10); RDW 17.3 % (11.5-14.5)
[2017-04-05 12:53] LABS: PLATELET COUNT 189 10x3/uL (130-400)
[2017-04-05 13:01] LABS: CREATININE - SERUM 0.6 mg/dL (0.6-1.3); VANCOMYCIN - TROUGH 14.3 ug/mL (10.0-20.0)
[2017-04-05 14:42] LABS: ERYTHROCYTE SEDIMENTATION RATE 15 mm/hr (0-20)
== END | disposition home or self-care (01) ==
LOC: D.LABREF 09:49
PROVIDERS: Family Medicine
DX: T84.54XA Infection and inflammatory reaction due to internal left knee prosthesis, initial encounter (principal)

== ENCOUNTER 2017-04-12 20:09 | Inpatient (IN) | payer MEDICAID ==
[~2017-04-12] VITALS: Ht 182.9 cm; Wt 125.9 kg
[2017-04-12 20:44] LABS: BASOPHILS 0.4 % (0-2); EOSINOPHILS 2.4 % (0-7); HEMOGLOBIN 11.3 g/dL (13.5-17.5); IMMATURE GRANULOCYTES 0.2 % (0-5); LYMPHOCYTES 15.5 % (15-50); MCH 28.3 pg (26.0-34.0); MCHC 31.4 g/dL (31.0-37.0); MONOCYTES 13.6 % (2-11); NEUTROPHILS 67.9 % (40-80); PLATELET COUNT 172 10x3/uL (130-400); RDW 17.3 % (11.5-14.5); WBC 8.4 10x3/uL (4.8-10.8)
[2017-04-12 20:59] LABS: ALBUMIN 3.1 g/dL (3.4-5.0); ALKALINE PHOSPHATASE 132 U/L (46-116); ALT (SGPT) 20 U/L (10-68); BILIRUBIN - TOTAL 0.55 mg/dL (0.2-1.3); CALC OSMOLALITY 272 mosm/kg (275-300); CALCIUM 8.8 mg/dL (8.5-10.1); CARBON DIOXIDE 29.2 mmol/L (21.0-32.0); CHLORIDE - SERUM 102 mmol/L (98-107); CREATININE - SERUM 0.7 mg/dL (0.6-1.3); GLUCOSE 104 mg/dL (74-106); POTASSIUM - SERUM 4.1 mmol/L (3.5-5.1); PROTEIN - SERUM 6.2 g/dL (6.4-8.2); SODIUM 137 mmol/L (136-145); UREA NITROGEN 10 mg/dL (7-18); eGFR NON AFRICAN AMERICAN > 90 mL/min (90-120)
[2017-04-13] VITALS (7 sets, daily range): BP systolic 145–157; BP diastolic 62–76; Ht 182.9 cm; Wt 125.9 kg
--- NOTE | 2017-04-13 00:25 | NUR ---
PT ARRIVED IN ROOM. AT BEDSIDE. PICC LINE IN RIGHT UPPER ARM DRESSING CDI. WALKER FROM HOME IN PT ROOM. PT C/O PAIN 6/10 IN LEFT KNEE THAT IS DULL IN THE KNEE AND RADIATES TO ANKLE AND SUNSHINE AND IS SHARP. PT NEEDS ASSIST TO URINATE IN URINAL. LAST OUTPUT 225CC YELLOW. KNEE BRACE AT BEDSIDE MUST BE USED FOR ANY ACTIVITY. PT IS TO KEEP HIS LEG STRAIGHT AND NOT HAVE A BENT KNEE. DRESSING COVERING HIS INCISON ON LEFT KNEE. START OF INCISION OUT OF DRESSING IS APPROXIMATED AND HAS ABRAN. PT HAS PITTING 2+ EDEMA ON BILAT LOWER EXTREM. ALSO HAS EDEMA IN GROIN AREA, PENIS AND SCROTUM. PT DENIES ANY NEEDS AT THIS TIME. NO S/S OF DISTRESS. 2L OF O2 VIA NC. BED LOW AND CALL LIGHT WITHIN REACH WILL CPOCPT ARRIVED IN ROOM. AT BEDSIDE. PICC LINE IN RIGHT UPPER ARM DRESSING CDI. WALKER FROM HOME IN PT ROOM. PT C/O PAIN 6/10 IN LEFT KNEE THAT IS DULL IN THE KNEE AND RADIATES TO ANKLE AND SUNSHINE AND IS SHARP. PT NEEDS ASSIST TO URINATE INPT ARRIVED IN ROOM. AT BEDSIDE. PICC LINE IN RIGHT UPPER ARM DRESSING CDI. WALKER FROM HOME IN PT ROOM. PT C/O PAIN 6/10 IN LEFT KNEE THAT IS DULL IN THE KNEE AND RADIATES TO ANKLE AND SUNSHINE AND ISPT ARRIVED IN ROOM. AT BEDSIDE. PICC LINE IN RIGHT UPPER ARM DRESSING CDI. WALKER FROM HOME IN PT ROOM. PT C/O PAIN 6/10 IN LEFT KNEE THAT IS DULL IN THE KNEE AND RADIATES TO ANKLE AND SUNSHINE AND IS SHARP. PT HAS TYLENOL # 3 AT HOME THAT DOES NOT HELP WITH PAIN. PT WAS ON HYDROCODONE THAT HELPED MORE. PT NEEDS ASSIST TO URINATE IN URINAL. LAST OUTPUT 225CC YELLOW. KNEE BRACE AT BEDSIDE MUST BE USED FOR ANY ACTIVITY. PT IS TO KEEP HIS LEG STRAIGHT AND NOT HAVE A BENT KNEE. DRESSING COVERING HIS INCISON ON LEFT KNEE. START OF INCISION OUT OF DRESSING IS APPROXIMATED AND HAS ABRAN. PT HAS PITTING 2+ EDEMA ON BILAT LOWER EXTREM. ALSO HAS EDEMA IN GROIN AREA, PENIS AND SCROTUM. PT DENIES ANY NEEDS AT THIS TIME. NO S/S OF DISTRESS. 2L OF O2 VIA NC. BED LOW AND CALL LIGHT WITHIN REACH WILL CPOC
[2017-04-13] MEDS ORDERED: VANCOMYCIN 1 GM/1 G1 IV (00:33)
[2017-04-13] MEDS ORDERED: CEFTRIAXONE1 G/VIAL IM (00:35)
--- NOTE | 2017-04-13 03:59 | NUR ---
PT RESTING IN BED. HYDROCODONE GIVEN FOR 7 PAIN WITH A DIET COKE. TELEMETRY NOW ON PT. PT DENIES ANY OTHER NEEDS. NO S/S OF DISTRESS. WILL CONTINUE TO MONITOR
--- NOTE | 2017-04-13 06:30 | NUR ---
PT RESTING IN BED. STATES PAIN IS A 3/10. C/O ACID REFLUX. PT DENIES ANY NEEDS, NO S/S OF DISTRESS. BED LOW CALL LIGHT WITHIN REACH WILL CPOC
[2017-04-13 06:59] LABS: CALC OSMOLALITY 276 mosm/kg (275-300); CALCIUM 8.9 mg/dL (8.5-10.1); CARBON DIOXIDE 31.9 mmol/L (21.0-32.0); CHLORIDE - SERUM 101 mmol/L (98-107); CREATININE - SERUM 0.7 mg/dL (0.6-1.3); GLUCOSE 117 mg/dL (74-106); POTASSIUM - SERUM 4.1 mmol/L (3.5-5.1); SODIUM 138 mmol/L (136-145); UREA NITROGEN 12 mg/dL (7-18); eGFR NON AFRICAN AMERICAN > 90 mL/min (90-120)
--- NOTE | 2017-04-13 07:05 | NUR ---
RECEIVED REPORT. ASSUMED CARE OF PATIENT. CALL LIGHT WITHIN REACH. DENIES NEEDS AT THIS TIME. EDEMA NOTED TO BILATERAL LOWER LEGS, SCROTUM AND PENIS DURING MORNING ASSESSMENT AT THIS TIME. PICC LINE TO RIGHT UPPER ARM. NO DISTRESS.
[2017-04-13 07:14] LABS: BASOPHILS 0.6 % (0-2); EOSINOPHILS 5.3 % (0-7); HEMATOCRIT 35.1 % (42.0-54.0); HEMOGLOBIN 11.1 g/dL (13.5-17.5); IMMATURE GRANULOCYTES 0.1 % (0-5); LYMPHOCYTES 17.8 % (15-50); MCH 28.5 pg (26.0-34.0); MCHC 31.6 g/dL (31.0-37.0); MEAN PLATELET VOLUME 9.8 fL (7.4-10.4); NEUTROPHILS 62.2 % (40-80); PLATELET COUNT 166 10x3/uL (130-400); RDW 17.4 % (11.5-14.5)
--- NOTE | 2017-04-13 08:37 | NUR ---
ATTEMPTED TO PLACE GOLDMAN CATHETER. PATIENT IS EXTREMELY EDEMATOUS TO PENIS AND SCROTUM. UNABLE TO RETRACT FORESKIN. WILL NOTIFY .
--- NOTE | 2017-04-13 09:30 | NUR ---
ARMED SECURITY PROFESSIONAL SPOKE WITH AND HE STATED [place] TODAY AND WE HAVE TO FIND SOMEONE ELSE TO PLACE THE GOLDMAN. WE HAVE NO OTHER UROLOGIST ON STAFF. AERIAL PHOTOGRAPHER NOTIFIED. PURPOSE OF F/C IS ACURATE I&O, PATIENT IS ABLE TO URINATE WITHOUT DIFFICULTY.
--- NOTE | 2017-04-13 11:49 | NUR ---
FSBS 167. 4 UNITS HUMALOG ADMINISTERED AT THIS TIME. NO DISTRESS.
[2017-04-13 13:01] LABS: APPEARANCE CLEAR (CLEAR); BACTERIA FEW /hpf (NONE SEEN); BILIRUBIN NEGATIVE (NEGATIVE); COLOR YELLOW (YELLOW); EPITHELIAL CELLS RARE /hpf (0-5); GLUCOSE NEGATIVE (NEGATIVE); KETONE NEGATIVE (NEGATIVE); LEUKOCYTE ESTERASE NEGATIVE (NEGATIVE); NITRITE NEGATIVE (NEGATIVE); PROTEIN NEGATIVE (NEGATIVE); RED CELLS - URINE 0-5 /hpf (0-5); UROBILINOGEN NORMAL (NORMAL); WHITE CELLS - URINE RARE /hpf (0-5)
--- NOTE | 2017-04-13 14:29 | NUR ---
KERLIX REMOVED FROM LEFT LEG, INCISION CLEANSED, CLIPS PATENT. INCISION APPROXIMATED. AIRSTRIP MEPILEX DRESSING PLACED OVER CLIPS/INCISION. TOELRATED DRESSING CHANGE WELL. NO DISTRESS.
--- NOTE | 2017-04-13 16:30 | NUR ---
VIs the patient Alert and Oriented? Yes 0 * How many steps to enter\exit or inside your home? 2 STEPS 0 * PCP DR ALBERTS 0 * Pharmacy [facility] 0 * Preadmission Environment Home with Family 0 * ADLs Independent 0 * Equipment PICC Line Supplies Rolling Walker Wheelchair 0 * List name and contact numbers for known caregivers / representatives who currently or will assist patient after discharge: BEVERLY CLEMENTS- [phone] * Community resources currently utilized Home Health 0 * Please name any agencies selected above. [facility] - SPOKE WITH BUNNY BEE SINCE 02/10/17. 0 * Additional services required to return to the preadmission environment? Yes 0 * Can the patient safely return to the preadmission environment? Yes 0 * Has this patient been hospitalized within the prior 30 days at any hospital? Yes 0 Grand Total: 0
--- NOTE | 2017-04-13 16:43 | NUR ---
FSBS 182. 4 UNITS HUMALOG ADMINISTERED PER SLIDING SCALE. NO DISTRESS. CONSUMING PM MEAL AT THIS TIME.
--- NOTE | 2017-04-13 17:25 | NUR ---
PATIENT'S COUNTER TOP ASSEMBLER ON BOARD THIS AFTERNOON, ARMANDO MACHUCA. SHE SPOKE WITH THE PATIENT. KNOWS PATIENT AND HIS VERY WELL. THE PATIENT HAS BEEN ON HOME HEALTH SERVICES WITH [employer]. CM SPOKE WITH FERNANDO AT [facility] [facility] BEGAN 02/10/17 FOR HOME IVAB THERAPY. PATIENT HAD HIS 4TH KNEE SURGERY 03/10- 03/14/17 IN [place]. HE HAD HIS PICC LINE CHANGED DURING THAT HOSPITALIZATION. PCP- DR ALBERTS [facility]- DR GUZMAN WILL BE FOLLOWING - DR TRISTAN SALDAÑA BY [facility]- WALKER, WHEELCHAIR, RAISED TOILET SEAT THERE ARE 2 STEPS TO ENTER HIS HOME. ARMANDO MACHUCA ADVISED CM THAT PATIENT WILL BE REFERRED TO CASE MANAGEMENT THRU [facility]. SHE WILL BE FOLLOWING HIS PROGRESS WHILE HOSPITALIZED. CM TO FOLLOW TO ASSIST WITH DISCHARGE PLANNING.
--- NOTE | 2017-04-13 18:22 | NUR ---
HERE AND SUCCESSFULLY PLACED 16 FR GOLDMAN CATHETER VIA STERILE TECHNIQUE. 100 CC CLEAR YELLOW URINE RECEIVED UPON INSERTION. URINE DRAINING VIA GRAVITY.
--- NOTE | 2017-04-13 18:31 | NUR ---
1821 HERE AND SUCCESSFULLY PLACED 16FR GOLDMAN CATHETER. STERILE TECHNIQUE BROKE BY NON STERILE GLOVES USED BY WHILE INSERTING FOLEYCATH. 100 CC CLEAR YELLOW URINE RETURNED TO DRAINAGE BAG VIA GRAVITY. THIS WAS A DIFFICULT GOLDMAN TO PLACE DUE TO THE AMOUNT OF EDEMA IN PENIS. STATLOCK APPLIED TO INNER RIGHT THIGH. THANKED FOR HIS ASSISTANCE IN PLACING THE GOLDMAN.
--- NOTE | 2017-04-13 19:26 | NUR ---
REPORT GIVEN TO ONCOMING NURSE. NO DISTRESS.
--- NOTE | 2017-04-13 19:30 | NUR ---
REPORT RECIEVED. INTRODUCED SELF TO PT AND PLACED NAME ON WHITE BOARD. RR EVEN AND UNALBORED PT DENIES NEEDS AT THIS TIME. BED IN LOWEST POSTION, CALL SANDOVAL IN REACH, WILL CTM.
[2017-04-14 04:00] VITALS: BP 139/67
[2017-04-14 06:23] LABS: BASOPHILS 0.4 % (0-2); EOSINOPHILS 7.6 % (0-7); HEMATOCRIT 36.1 % (42.0-54.0); HEMOGLOBIN 11.3 g/dL (13.5-17.5); IMMATURE GRANULOCYTES 0.3 % (0-5); LYMPHOCYTES 20.8 % (15-50); MCH 28.2 pg (26.0-34.0); MCHC 31.3 g/dL (31.0-37.0); MEAN PLATELET VOLUME 10.1 fL (7.4-10.4); MONOCYTES 12.6 % (2-11); NEUTROPHILS 58.3 % (40-80); PLATELET COUNT 165 10x3/uL (130-400); RBC 4.01 10x6/uL (4.20-6.10); RDW 17.3 % (11.5-14.5); WBC 7.4 10x3/uL (4.8-10.8)
[2017-04-14 06:47] LABS: CALC OSMOLALITY 278 mosm/kg (275-300); CALCIUM 8.6 mg/dL (8.5-10.1); CARBON DIOXIDE 32.5 mmol/L (21.0-32.0); CHLORIDE - SERUM 99 mmol/L (98-107); CREATININE - SERUM 0.7 mg/dL (0.6-1.3); GLUCOSE 146 mg/dL (74-106); POTASSIUM - SERUM 3.9 mmol/L (3.5-5.1); SODIUM 138 mmol/L (136-145); UREA NITROGEN 12 mg/dL (7-18); VANCOMYCIN - RANDOM 11.9 ug/mL (10.0-20.0); eGFR NON AFRICAN AMERICAN > 90 mL/min (90-120)
[2017-04-14 08:00] VITALS: BP 156/63
--- NOTE | 2017-04-14 08:06 | NUR ---
AM ROUNDS - PT IS AWAKE IN BED AT THIS TIME. YELLOW BAND ON. SIDE RAILS UP X2. BED AT LOWEST POSITION. CALL SANDOVAL IN USE/REACH. MONITOR SHOWING PACE AT 65. GOLDMAN DRAINING CLEAR YELLOW. PICC TO RIGHT UPPER ARM, NS AT 30CC/HR. NO NEEDS AT THSI TIME. WILL CONTINUE TO MONITOR
[2017-04-14 12:00] VITALS: BP 122/64
--- NOTE | 2017-04-14 15:30 | NUR ---
PT IS IN BED WATCHING TV. NO NEEDS AT THIS TIME. WILL CONTINUE OT MONITOR
[2017-04-14 19:00] VITALS: BP 130/56
--- NOTE | 2017-04-14 19:37 | NUR ---
ALERT/AWAKE WATCHING TV. ORIENTED X 4. PICC LINE IN RT UA WITH NS INFUSING AT 30ML/HR. NO S/S OF INFILTRATION. TELEMETRY LEADS IN PLACE, SHOWS 62 PACED ON MONITOR. LEFT LEG IN BRACE. DENIES PAIN. HAS CL IN REACH.
--- NOTE | 2017-04-14 21:10 | NUR ---
ADMIN SCHED MEDS AND INSULINS FOR BS 209. GAVE SNACK OF PEPE CRACKERS AND PEANUT BUTTER, REQUESTED A DIET COLA.
[2017-04-15 01:39] VITALS: BP 146/68
[2017-04-15 05:32] VITALS: BP 132/70
[2017-04-15 07:20] LABS: CALC OSMOLALITY 276 mosm/kg (275-300); CALCIUM 8.7 mg/dL (8.5-10.1); CARBON DIOXIDE 36.2 mmol/L (21.0-32.0); CHLORIDE - SERUM 100 mmol/L (98-107); CREATININE - SERUM 0.8 mg/dL (0.6-1.3); GLUCOSE 104 mg/dL (74-106); SODIUM 138 mmol/L (136-145); eGFR NON AFRICAN AMERICAN > 90 mL/min (90-120)
[2017-04-15 07:24] LABS: UREA NITROGEN 16 mg/dL (7-18)
--- NOTE | 2017-04-15 07:35 | NUR ---
REPORT RECIEVED. PT RESTING QUIETLY, RR EVEN AND UNLABORED. INTRODUCED SELF AND PLACED NAME ON WHTIE BOARD. PT DENIES NEEDS AT THIS TIME, ALERT AND ORIENTED X4. WILL CTM.
[2017-04-15 10:11] VITALS: BP 141/71
[2017-04-15 12:17] VITALS: BP 138/61
[2017-04-15 16:00] VITALS: BP 129/61
--- NOTE | 2017-04-15 16:18 | NUR ---
Nutrition Follow Up: Chart reviewed. Pt is eating 100% meal avg on a diabetic diet. +BM 04/15/17. Wt loss since admit noted - r/t fluid. Meds noted including Lasix, Levemir, Humalog. Labs reviewed - glucose elevated. Rec continue current diet. RD following.
--- NOTE | 2017-04-15 18:30 | NUR ---
PT RESTING QUIETLY, RR EVEN AND UNLABORED. WILL GIVE REPORT ON PT CONDITION FOR THE DAY.
[2017-04-15 20:00] VITALS: BP 144/63
--- NOTE | 2017-04-15 21:10 | NUR ---
CHECKED BS AT 196. REQUESTED TO BE GIVEN 50 UNITS OF THE 63 UNITS SCHED. GAVE SNACK OF PEPE CRACKERS/PEANUT BUTTER. NO OTHER NEEDS VOICED.
--- NOTE | 2017-04-15 23:48 | NUR ---
STATED HE FELT WET. CHECKED GOLDMAN AND FOUND IT KINKED UNDER HIS LEG. CHANGED GOWN AND BEDDING. APPLIED NYSTATIN POWDER TO GROIN CREASES. REQUESTED LIGHTS OFF AND DOOR CLOSED TO SLEEP.
--- NOTE | 2017-04-16 02:50 | NUR ---
AWAKE WATCHING TV. ADMIN VANC IV. DENIES ANY NEEDS.
[2017-04-16 05:24] VITALS: BP 116/64
--- NOTE | 2017-04-16 06:30 | NUR ---
CHECKED BS AT 88. DENIES ANY NEEDS OR DISCOMFORTS.
[2017-04-16 06:37] LABS: CALC OSMOLALITY 275 mosm/kg (275-300); CALCIUM 8.7 mg/dL (8.5-10.1); CARBON DIOXIDE 34.6 mmol/L (21.0-32.0); CHLORIDE - SERUM 100 mmol/L (98-107); CREATININE - SERUM 0.7 mg/dL (0.6-1.3); GLUCOSE 85 mg/dL (74-106); POTASSIUM - SERUM 3.8 mmol/L (3.5-5.1); SODIUM 138 mmol/L (136-145); UREA NITROGEN 14 mg/dL (7-18); eGFR NON AFRICAN AMERICAN > 90 mL/min (90-120)
[2017-04-16 07:43] VITALS: BP 130/62
--- NOTE | 2017-04-16 08:00 | NUR ---
AM ROUNDS COMPLETED. PT A&O SITTING UP IN BED RESTING QUIETLY. SHIFT ASSESSMENT COMPLETED. PT HAS R.UPPER ARM PICC LINE IN PLACE WITH BIOPATCH CDI AND SWAB CAPS IN USE. PT HAS L.KNEE DRSG CDI WITH ABRAN ON INCISION CDI AND BRACE IN PLACE. PT HAS A GODLMAN IN PLACE DRAINING TO GRAVITY WITH STAT LOCK SECURED TO R.INNER THIGH. PTS SCROTUM VERY SWOLLEN AND REDDENED WITH EXCORIATION. PROVIDED PILLOW CASES TO GROIN FOLDS TO KEEP GROIN DRY. PT VOICED THANKS. PT DENIES ANY CURRENT PAIN OR NEEDS AT THIS TIME. CL IN REACH, BED IN LOWEST, SIDE RAILS X2. WILL CPOC.
--- NOTE | 2017-04-16 08:44 | HP ---
PATIENT: CANDE CLEMENTS MEDICAL RECORD: [id number] ACCOUNT: [id number] LOCATION:[address] : [birth year] ADMISSION DATE: 04/14/17 HISTORY AND PHYSICAL EXAMINATION REASON FOR ADMISSION: Increasing lower extremity edema with shortness of breath. HISTORY OF PRESENT ILLNESS: The patient is a 61-year-old male with metabolic syndrome and atrial fibrillation. He had 4 prior knee replacements on the left and in December of this year, developed a Staph and Strep osteomyelitis. He was seen by Dr. Quigley for septic joint. Ultimately, he was referred to Dr. Sarah in [place]. He has been on 4 weeks of IV vancomycin and Rocephin after having his left knee totally replaced. He states that Dr. Quigley told him he has a 60,000 dollar knee. He has had increasing edema in his lower extremities and scrotum for the last 3 weeks, became worse yesterday. He had mild shortness of breath, but no chest pain. His home health nurse advised him to come to the Emergency Room. He states he has been up a with knee brace on doing physical therapy. He is still having chronic knee pain. Denies any fever. PAST MEDICAL HISTORY: Multiple hospitalizations since 2016 for Staph and Strep cellulitis of the left hip and inner thigh abscess that was I&D'd. Left septic knee; diabetes mellitus, [id number], poorly controlled; exogenous obesity; history of paroxysmal atrial fibrillation, post-ablation that was not successful. He had history of CAD with multiple interventions with PTCA. He denies history of AK. Diabetic retinopathy, sick sinus syndrome with pacemaker, cardiomegaly with EF of 35%-40%. Last cath in [facility], March 19, showed normal coronaries and EF of 35% with LVH. History of hypogonadism, lumbago, sciatica and adult sleep apnea. PAST SURGICAL HISTORY: Pacemaker placement, 11/01/2000; appendectomy, total knee replacement, now times 4 with pain pump placement, pacemaker change-out in [address] [facility] [address] Perea. Ablation for AFib focus on 11/01/2000, unsuccessful. 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 Multiple procedures on his left knee as mentioned above. FAMILY HISTORY: Positive for hypertension in both parents. DRUG ALLERGIES: None mentioned. SOCIAL HISTORY: Nonsmoker, nondrinker. He is to his second . CURRENT MEDICATIONS: Rocephin 2 g IV piggyback daily, vancomycin dose currently unknown, simvastatin 40 mg with evening meal, Xarelto 20 mg daily, lisinopril 20 mg daily, Levemir 63 units b.i.d. a.c., NovoLog a.c. meals per sliding scale, gabapentin 300 mg p.o. t.i.d., Cardura 4 mg daily, Celexa 20 mg daily, aspirin 325 mg daily. REVIEW OF SYSTEMS: GENERAL: He has been fatigued. He is having gradual weight gain. No fever. HEENT: No recent new visual change, sinus congestion, sore throat or hearing difficulty. RESPIRATORY: Mild shortness of breath and intermittent dry cough he attributes to lisinopril. Cough has been nonproductive. HISTORY AND PHYSICAL [id number] CANDE CLEMENTS CARDIAC: No recent chest pain or palpitations. He denies any EVERETT. There is increasing edema severely in his lower extremities and scrotal area. GASTROINTESTINAL: No nausea, vomiting, change in stools or blood per rectum. He has had a little bit of stool incontinence at times. GENITOURINARY: He has some trouble urinating. He has a bad rash on his penis currently due to the edema and he says he has mild incontinence as well. INTEGUMENT: Rash in his scrotal area. Currently, it is nonpruritic. PSYCHIATRIC: Denies depress mood. MUSCULOSKELETAL: Chronic pain in his lumbar spine and left knee post-replacement. He says Tylenole #3 does not work. NEUROLOGIC: No history of stroke, TIA, or vascular headaches. PHYSICAL EXAMINATION: VITAL SIGNS: Temperature 97.7 Fahrenheit orally, pulse 63 and regular, respirations 24, blood pressure 145/62, sat 91%-96% on room air. GENERAL: The patient is alert and oriented. HEENT: Eyes are clear. Throat unremarkable. NECK: No bruits, masses or JVD. CHEST: Fine basilar crackles without wheeze. HEART: Irregular rate and rhythm. ABDOMEN: Obese, soft, nontender. GENITOURINARY: Shows marked scrotal and penile foreskin edema with erythema noted at ventral aspect of the penis and scrotum. EXTREMITIES: Shows a 4+ pitting edema to the knees bilaterally. His left knee is wrapped in a wound dressing post-replacement. There is no erythema appreciated, no drainage. NEUROLOGICAL: Oriented to person, place, and time. Cranial nerves are grossly intact. Gait was not tested. The patient states he can walk with assistance on a knee brace. LABORATORY DATA: His white count is 8400, H&H 11.3 and 36.0 respectively, platelet count 172,000. BMP: Sodium 135, potassium 4.1, BUN and creatinine are normal with creatinine of 0.7. ProBNP is mildly elevated at 855. Troponin is less than 0.017. DIAGNOSTIC DATA: Chest x-ray is pending. ASSESSMENT: 1. Marked lymphedema. 2. History of coronary artery disease, post-PTCA. 3. History of chronic atrial fibrillation, post-ablation. 4. Left ventricular hypertrophy. 5. Systolic dysfunction with congestive heart failure. 6. 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 7. Metabolic syndrome. 8. Obstructive sleep apnea. 9. Morbid obesity. 10. Chronic pain. PLAN: The patient will be admitted for Ingram catheterization, IV diuresis, treatment of his skin rash as well. We will recheck an echo to assess function and cardiac monitoring. Further workup pending clinical course. TRANSINT:[id number] Voice Confirmation ID: [id number] DOCUMENT ID: [id number] HISTORY AND PHYSICAL [id number] CANDE CLEMENTS TIMOTHY MD at 0844 CC: [id number] DICTATION DATE: 04/13/17730 SIDE GUIDER: 04/13/17 0902 [place] [address]
--- NOTE | 2017-04-16 11:16 | NUR ---
PT JUST FINISHED SHOWER AND WAS NOW ASSISTED INTO BEDSIDE CHAIR. PT STATED IT FELT VERY GOOD AND IS VERY THANKFUL. PT DENIES ANY CURRENT PAIN OR NEEDS. CL IN REACH, BED IN LOWEST, SIDE RAILS X2. WILL CPOC.
[2017-04-16] MEDS ORDERED: NYSTATIN1 PWD TOPICAL (13:13)
[2017-04-16] MEDS ORDERED: LEVEMIR100 U/M1 SC (13:14)
[2017-04-16] MEDS ORDERED: KLOR-CON 1010 MEQ PO (13:17)
[2017-04-16] MEDS ORDERED: LASIX40 MG PO (13:17)
--- NOTE | 2017-04-16 15:39 | NUR ---
DISCHARGE TEACHING PROVIDED AND PT VERBALIZED UNDERSTANDING. AT BEDSIDE FOR TRANSPORTATION. BELONGINGS COLLECTED. [facility] [employer] [facility] GOLDMAN TEACHING AND DEMONSTRATED ON HOW TO PROPERLY CLEAN FOR HOME GOLDMAN. PT WILL RECIEVE HOME HEALTH HE WAS BEFORE AND DENIES ANY QUESTIONS OR CONCERNS. NO FURTHER NEEDS. WILL BE TRANSPORTED DOWN TO [facility].
--- NOTE | 2017-04-16 17:18 | NUR ---
Patient Name: EARNEST CLEMENTS Encounter No: [id number] : 1955 Primary Insurance: [place] [employer] OPTIONS [place] Anticipated DC Date: 04-16-2017 Planned Disposition: Home with [facility] External Planned Provider: [facility] LATE ENTRY: DCP follow-up note: PT DISCHARGED HOME. OANH NOTIFIED FERNANDO OF [facility] COUNTS INCLUDE 234 BEDS AT THE [facility], , FOR RESUMPTION OF CARE TOMORROW. CM FAXED DISCHARGE INFORMATION TO [facility] AT [phone]. NO FURHTER NEEDS IDENTIFIED. Earnest Hansen, CASE MANAGEMENT
--- NOTE | 2017-04-17 13:35 | EC ---
PATIENT:CANDE CLEMENTS DATE OF SERVICE: 04/12/17 SEX: M MEDICAL RECORD: [id number] DATE OF : [birth year] LOCATION:D.M2 D.213 AGE OF PATIENT: 61 ADMISSION DATE: 04/14/17 REFERRING PHYSICIAN: INTERPRETING PHYSICIAN: MICHELLE HERNANDEZ MD ECHOCARDIOGRAM REPORT ECHO CHARGES 4 ECHO COMPLETE CLINICAL DIAGNOSIS: LOWER EDEMA HX OF AFIB/HTN/PACEMAKER ECHOCARDIOGRAPHIC MEASUREMENTS (adult normal given) AC root (d.<3.7cm) 3.1 cm LV Septum d (<1.2 cm> 1.7 cm Valve Excursion cm LV Septum (systole) 1.9 cm Left Atria (s.<4.0cm> 4.3 cm LVPW d(<1.2cm) 1.0 cm RV (d.<2.3cm) 4.4 cm LVPW (sytole) 1.6 cm LV diastole(<5.6CM) 4.7 cm MV E-F(>70mm/sec) cm LV systole 2.9 cm LVOT Diameter 1.8 cm MV exc.(>10mm) cm Est.ejection fraction (50-75%) % Pericardial Effusion N DOPPLER: LVIT cm/sec A 44.0 cm/sec E 152 cm/sec LA cm/sec RVSP 53 mmHg LVOT 102 cm/sec AOP1/2T m/s Asc. Ao 242 cm/sec RVOT cm/sec RA cm/sec PA cm/sec AV Gradient Peak 23.48mmHg AV Mean 10.75mmHg AV Area 1.0 cm MV Gradient Peak 16.05mmHg MV Mean 3.69 mmHg MV Area cm COMMENTS: Lithographing Machine Operator: 2 VIKA PIRES Entrance Guard: 4 Dr. Hernandez TAPE# PACS DATE OF SERVICE: 04/13/2017 FINDINGS: 1. Left ventricle: Left ventricle was difficult to visualize. There is what appears to be LVH. We were unable to assess diastolic function. The patient appears to be in atrial fibrillation. The overall function appears to be normal 60% to 65%. There are no gross regional wall motion abnormalities. 2. The right ventricle appears to be dilated. There is a lead artifact seen in the right ventricle. 3. The mitral valve has mitral annular calcification, which is readily visible. ECHOCARDIOGRAM REPORT [id number] CANDE CLEMENTS There are no gross abnormalities on the mitral valve. Tricuspid valve is not well visualized. There is pvxn-cn-dywvusaq tricuspid regurgitation. There is elevated pulmonic pressures of 53 mmHg. 4. The left atrium is mildly dilated at 4.3 cm. 5. The right atrium is not well visualized, but appears to be normal function, normal size. 6. Interatrial septum was not well visualized. IMPRESSION: The patient has an echocardiogram consistent with hypertensive heart disease, chronic atrial fibrillation with what appears to be a pacer wire. The overall study quality was more qualitative rather than quantitative. If more detailed evaluation would be helpful, possibly a contrast study or DIANE if clinically indicated. TRANSINT:[id number] Voice Confirmation ID: [id number] DOCUMENT ID: [id number] MICHELLE HERNANDEZ MD at 1335 CC: [id number] DICTATION DATE: 04/13/17 1739 FOOD PROCESSING PLANT MANAGER: 04/14/17 0023 DIS IN 04/16/17 [id number] [place] [address]
== END 2017-04-16 15:52 | disposition home health service (06) | DRG 607 ==
LOC: D.ER 20:09 → OBSVTIME 23:33 → D.M2 23:33
PROVIDERS: Emergency Medicine Emergency Medical Services; ADMIT Family Medicine
PROC: 0T9B70Z Drainage of Bladder with Drainage Device, Via Natural or Artificial Opening (ICD-10-PCS; principal; 2017-04-13)
DX: I89.0 Lymphedema, not elsewhere classified (principal); I50.20 Unspecified systolic (congestive) heart failure; I25.10 Atherosclerotic heart disease of native coronary artery without angina pectoris; Z95.5 Presence of coronary angioplasty implant and graft; E66.09 Other obesity due to excess calories; E11.319 Type 2 diabetes mellitus with unspecified diabetic retinopathy without macular edema; I48.0 Paroxysmal atrial fibrillation; Z95.0 Presence of cardiac pacemaker; G89.29 Other chronic pain; E88.81 Metabolic syndrome and other insulin resistance; N48.89 Other specified disorders of penis; G47.33 Obstructive sleep apnea (adult) (pediatric); Z87.891 Personal history of nicotine dependence

== ENCOUNTER 2017-06-03 06:23 | Day surgery (SDC) | payer BC ==
--- NOTE | 2017-06-02 15:29 | NUR ---
ALEXANDER APPT: PT STATES DID NOT TAKE XARELTO 05/30 & 05/31, BUT FORGOT & TOOK DOSE ON 06/01 BUT NOT 06/02. LAW AT DR. HUDSON'S OFFICE NOTIFIED. STATES DR. HUDSON SAID TO PROCEED.
[2017-06-02 16:29] LABS: HEMATOCRIT 33.7 % (42.0-54.0); HEMOGLOBIN 11.2 g/dL (13.5-17.5); MCH 28.3 pg (26.0-34.0); MCHC 33.2 g/dL (31.0-37.0); MCV 85.1 fL (80.0-100.0); RBC 3.96 10x6/uL (4.20-6.10); WBC 8.8 10x3/uL (4.8-10.8)
[2017-06-02 16:36] LABS: ANION GAP 13.9 mmol/L (8-16); CALCIUM 9.9 mg/dL (8.5-10.1); CARBON DIOXIDE 26.9 mmol/L (21.0-32.0); CREATININE - SERUM 1.3 mg/dL (0.6-1.3); POTASSIUM - SERUM 4.8 mmol/L (3.5-5.1)
[~2017-06-03 06:23] MED LIST changes: +CEFTRIAXONE1 G/VIAL IM; +FLOMAX0.4 MG PO; +KLOR-CON 1010 MEQ PO; +LASIX40 MG PO; +NYSTATIN1 PWD TOPICAL; +VANCOMYCIN 1 GM/1 G1 IV
[2017-06-03 08:50] VITALS: BP 121/48; BMI 33.7
[2017-06-03] MEDS ORDERED: BACTRIM 400-801 TAB PO (08:59)
--- NOTE | 2017-06-03 12:43 | NUR ---
PATIENT NOTED TO HAVING SOME BRUISING ON BELLY, TWORLEY.
--- NOTE | 2017-06-03 13:08 | NUR ---
THE PATIENT REQESTED A SHORT RECOVERY SO HE COULD EAT
--- NOTE | 2017-06-03 16:06 | NUR ---
1445--IV DC'D, PT UP TO DRESS. FRANSISCO RITTER 1500--DISCHARGE INSTRUCTIONS GIVEN, PT VERBALIZES UNDERSTANDING. PT OFF UNIT VIA WC. FRANSISCO RITTER
--- NOTE | 2017-06-04 09:28 | OP ---
PATIENT NAME: CANDE CLEMENTS MEDICAL RECORD: [id number] :[birth year] LOCATION:.[facility] ADMISSION DATE: SURGEON: CRISTHIAN HUDSON MD DATE OF OPERATION: 06/03/2017 SURGEON: Cristhian Hudson MD ANESTHESIA: General anesthesia by Dr. George Cornejo. PREOPERATIVE DIAGNOSES: Phimosis, obstructive BPH. PROCEDURES: Circumcision and cystoscopy. FINDINGS: 1. Phimosis. 2. On cystoscopy, obstructive prostate. Single ureteral orifices with no bladder tumors. SPECIMENS: Foreskin of the penis. ESTIMATED BLOOD LOSS: Minimal. CLINICAL HISTORY: This is a 61-year-old male, who was initially seen in the hospital when he was admitted for congestive heart failure. He had significant penile edema and phimosis, which prevented insertion of a Ingram catheter. I managed to get a catheter inserted into the bladder. He also has a lot of symptoms of urinary frequency and slow urinary flow. I restarted him on Flomax. He has been on the Flomax for some time and he said that it has not improved his voiding symptoms. Today, he comes to have circumcision performed. He will also have a cystoscopy performed to check for the site of his obstruction. HE IS ALLERGIC TO THE ANTIBIOTIC CUBICIN. We gave him Ancef 1 gram IV cat wagon operator to the OR today. DESCRIPTION OF PROCEDURE: The patient was placed in supine position, and he was given induction of general anesthesia. He was prepped and draped. The foreskin was so tight that we could not retract the foreskin sufficiently to expose the glans penis. A dorsal slit therefore had to be made. Mosquito clamps were placed on either side of the midline of the foreskin edge. The midline was crushed using a straight clamp. Metzenbaum scissors were then used to make the dorsal slit. Once we had advanced proximally enough, we were able to pull the foreskin back and expose the glans penis. We had to re-prep the exposed glans penis due to the presence of smegma. I then marked out the mucosal foreskin at a point about 5 mm away from the bragg of the foreskin. A #2 nylon suture was placed through the glans penis and used for retraction. The patient's penis was put in to maximal length of erection by pulling on the traction suture. The foreskin was then advanced back forward over the glans penis. The corresponding location on the cutaneous foreskin was marked out using a marking pen. The incisions were made using a #15 blade. We then used Metzenbaum scissors to dissect away the dartos fascia from the undersurface of the foreskin. Once the foreskin was entirely free, it was sent to pathology for diagnosis. We cauterized any bleeding points in the dartos fascia. The skin was reapproximated using simple interrupted 4-0 Vicryl. Once this was done, we then placed the flexible cystoscope and performed cystoscopy. Penile urethra was nonobstructive. There were no lesions present. He has trilobar hyperplasia of OPERATIVE REPORT [id number] CANDE CLEMENTS the prostatic urethra. The lateral lobe especially appeared to be obstructive. Going into the bladder, there were single ureteral orifices on each side. No bladder tumors were seen. The scope was then removed. A red rubber catheter was then inserted to completely drain the bladder. The red rubber catheter was then removed. A Vaseline gauze dressing was applied around the incision line on the penis. A Kerlix wrap was given to the penis. The patient will be instructed to remove the dressing in 2 days' time and he can shower at that time. I will see him back in followup in about 2 weeks' time. I have also started him today on finasteride 5 mg p.o. once a day to add to his tamsulosin prescription. TRANSINT:[id number] Voice Confirmation ID: [id number] DOCUMENT ID: [id number] CRISTHIAN HUDSON MD at 0928 CC: [id number] DICTATION DATE: 06/03/17 1300 MARKER HAND: 06/03/17 1314 [facility] 06/03/17 [place] [id number] [place] [id number]
== END 2017-06-03 15:00 | disposition home or self-care (01) ==
LOC: D.OPS 06:23
PROVIDERS: Anesthesiology
DX: N47.1 Phimosis (principal); N40.1 Benign prostatic hyperplasia with lower urinary tract symptoms; N13.8 Other obstructive and reflux uropathy; R35.0 Frequency of micturition; R39.12 Poor urinary stream; Z88.1 Allergy status to other antibiotic agents; Z01.812 Encounter for preprocedural laboratory examination

== ENCOUNTER → 2017-12-02 10:08 | Outpatient (CLI) | payer OTHER ==
[~2017-12-02 10:08] MED LIST changes: +BACTRIM 400-801 TAB PO
== END | disposition home or self-care (01) ==
LOC: D.RAD 10:08
DX: Z02.71 Encounter for disability determination (principal)